=== PATIENT | female | born 1960 | race Caucasian/White ===

== ENCOUNTER 2019-02-05 00:43 | Outpatient (CLI) | payer BC, SELFPAY ==
--- NOTE | 2019-02-05 12:50 | DI.MAMMO_ITS ---
SYMPTOM/DIAGNOSIS: SCREENING, Z12.31, FAMILY H/O BREAST CA, Z80.3 MAMMOGRAMS: Mammograms were interpreted according to the usual protocol including computer analysis with CAD system, tomosynthesis and C view imaging. The breast tissue is heterogeneously radiodense which lowers the sensitivity of the study. There is no evidence of a dominant mass. There are no suspicious calcifications and there has been no significant interval change when compared with previous exams. IMPRESSION: Category 1, no evidence for malignancy. Breast density, category C. Yearly screening mammography is recommended. SA ASSESSMENT OF FINDINGS: Negative. Category 1. Patient will receive a letter notifying them of these results. Bi-RADS category C. The breasts are heterogeneously dense, which may obscure small masses.
== END 2019-02-05 01:03 ==
PROVIDERS: PCP Family Medicine; Visit Provider Family Medicine
DX: Z12.31 Encounter for screening mammogram for malignant neoplasm of breast (principal); Z80.3 Family history of malignant neoplasm of breast
CPT/HCPCS: 77063; 77067

== ENCOUNTER 2021-06-29 14:11 | Outpatient (REF) | payer BC, SELFPAY ==
--- NOTE | 2021-06-29 13:35 | PAPFT_PTH ---
PATIENT: Keri Rodriguez LOC: [facility]#:[id number] AGE/SX: 60/F ROOM: RE06/29/[address]: Brock Argueta : 1960 BED: DIS: 06/29/2021 SPEC #: [id number] RECD: 06/30/21 13:02 STATUS: SUKHJINDER REQ #: [id number] KENY: 06/29/21 13:[address]: Brock Argueta DEPT: [facility] Cytology RECD BY: Sandra Brown ENTERED: 06/30/21 13:02 SP TYPE: PAPFT OTHR DR: Gerry Moise Tissues: 1 - CX/ENDOCX FOR PAP SMEARS Procedures: PAP THIN PREP/UVM Screening HPV DNA PROBE Comments: [id number]
[2021-06-29 22:06] LABS: Anion Gap 11.6 mmol/L (3-11); BUN 11 mg/dL (7-18); CO2 26.4 mmol/L (21.0-32.0); CREATININE 0.6 mg/dL (0.55-1.02); Calculated LDL 116 mg/dL (<100); Chloride 102 mmol/L (98-107); Cholesterol 187 mg/dL (<200); Glucose 71 mg/dL (74-106); HDL Cholesterol 58 mg/dL (40-60); Potassium 3.7 mmol/L (3.5-5.1); Sodium 140 mmol/L (136-145); Triglyceride 68 mg/dL (<150)
== END 2021-06-29 14:12 | disposition home or self-care (01) ==
LOC: NCHCN 14:11
PROVIDERS: PCP Family Medicine; Visit Provider Family Medicine
DX: Z00.00 Encounter for general adult medical examination without abnormal findings (principal); Z12.4 Encounter for screening for malignant neoplasm of cervix; Z11.51 Encounter for screening for human papillomavirus (HPV)
CPT/HCPCS: 80048; 80061; 88142; 87624

== ENCOUNTER 2021-07-05 00:15 | Outpatient (CLI) | payer BC, SELFPAY ==
--- NOTE | 2021-07-05 09:00 | DI.MAMMO_ITS ---
Exam(s) MAMMO SCREENING EXAM: MAMMO SCREENING CLINICAL HISTORY: SCREENING FOR BREAST CANCER Z12.39. TECHNIQUE: Bilateral full field digital CC and MLO mammographic images were obtained with 3D tomosyn thesis and utilizing computer aided detection (CAD). COMPARISON: Prior mammograms dating back to 2011, the most recent being January 2019. Prior breast ultrasound performed 2017 was reviewed. FINDINGS: There are no CAD designations. No new significant radiograph findings in the right breast. In the left breast lateral aspect there is a nodular density noted posteriorly not evident on prior m ammograms. This is located posteriorly, approximately 14 cm from the nipple. There is slight possib ly that this may represent a skin mole. Nevertheless, spot compression view recommended.. No malign ant-appearing microcalcification groups is region or elsewhere in either breast. There is no significant architectural distortion nor skin thickening-retraction. IMPRESSION: 1. No radiographic evidence of malignancy in left breast. 2. There is a lobulated 6 x 5 millimeter posteriorly located left breast nodule as described above. Additional spot compression exaggerated CC view recommended. Also ultrasound. Correlation clinical exam to determine there is a skin mole at this level will be performed when this patient returns for this additional left breast imaging. BI-RADS Category 0 - Assessment Incomplete: Need additional imaging evaluation Breast Density - Category C - Heterogeneously dense Breast density Category C or D implies that the patient has dense breast tissue. Dense breast tissue can make it harder to find cancer on a mammogram. Dense breast tissue is also associated with an incr eased risk of breast cancer. This information about the result of the mammogram report was provided to the patient to raise their awareness. Use this report when you speak with the patient about their risks for breast cancer, which includes their family history. At that time, you may recommend additional screening tests (Ultrasoun d or MRI) as these tests may add significant information. A negative radiographic report should not delay biopsy if a dominant or clinically suspicious mass is present. Up to ten percent of cancers are not identified on mammography. A negative report may reinforce clinical impression. Adenosis and dense breasts may obscure an underlying neoplasm. False positive reports average 6 to 10%. Patient will receive a letter notifying them of these results.
== END 2021-07-05 00:35 ==
PROVIDERS: PCP Family Medicine; Visit Provider Family Medicine
DX: Z12.31 Encounter for screening mammogram for malignant neoplasm of breast (principal); R92.8 Other abnormal and inconclusive findings on diagnostic imaging of breast
CPT/HCPCS: 77063; 77067

== ENCOUNTER 2021-07-13 02:10 | Outpatient (CLI) | payer BC, SELFPAY ==
--- NOTE | 2021-07-13 14:15 | DI.MAMMO_ITS ---
Exam(s) MAMMO SCREEN CALL BACK UNI EXAM: MAMMO SCREEN CALL BACK UNI CLINICAL HISTORY: NODULAR DENSITY LEFT BREAST TECHNIQUE: Spot compression views and tomographic imaging were performed. COMPARISON: 2011 through 05 July 2021 FINDINGS: The area of nodularity in far posterior lateral left breast is consistent with a skin tag or mole.No suspicious masses or suspicious microcalcifications are seen. IMPRESSION: BI-RADS Category 1, Negative Yearly screening mammography is recommended. Breast Density - Category B, scattered fibroglandular densities.
== END 2021-07-13 02:30 ==
PROVIDERS: PCP Family Medicine; Visit Provider Family Medicine
DX: Z12.31 Encounter for screening mammogram for malignant neoplasm of breast (principal)
CPT/HCPCS: 77063; 77067

== ENCOUNTER → 2023-07-23 00:46 | Outpatient (CLI) | payer BC, SELFPAY ==
--- NOTE | 2023-07-23 15:38 | DI.MAMMO_ITS ---
Exam(s) MAMMO SCREENING EXAM: MAMMO SCREENING CLINICAL HISTORY: SCREENING,Z12.31 TECHNIQUE: Mammograms were interpreted according to the usual protocol including computer analysis w Bio[employer] CAD system, tomosynthesis and C-view imaging. COMPARISON: 2015 through 2021 FINDINGS: The breasts are composed of scattered fibroglandular densities, Breast Density category B. No suspicious masses or suspicious microcalcifications are seen. No skin thickening or abnormal axillary lymph nodes are seen. There has been no significant change from prior exams. IMPRESSION: BI-RADS Category 1, Negative mammogram Yearly screening mammography is recommended. Breast Density - Category B, scattered fibroglandular densities. A negative radiographic report should not delay biopsy if a dominant or clinically suspicious mass is present. Up to ten percent of cancers are not identified on mammography. A negative report may reinforce clinical impression. Adenosis and dense breasts may obscure an underlying neoplasm. False positive reports average 6 to 10%. Patient will receive a letter notifying them of these results.
== END ==
PROVIDERS: PCP Family Medicine; Visit Provider Family Medicine
DX: Z12.31 Encounter for screening mammogram for malignant neoplasm of breast (principal)
CPT/HCPCS: 77063; 77067

== ENCOUNTER 2023-07-31 07:23 | Emergency (ER) | payer BC, SELFPAY ==
[2023-07-31 07:25] VITALS: BP 138/77; PULSE 94; RESP 16; TEMP 36.4; O2SAT 96
[2023-07-31 07:31] VITALS: BP 138/77; PULSE 94; RESP 16; TEMP 36.4; O2SAT 96
--- NOTE | 2023-07-31 07:37 | ED.GENADUL_ITS ---
HPI General Stated Complaint: Sorethroat ALVARO: 4 Date/Time Provider Initiated Documentation: 07/31/23 07:31. Limitations to Documentation: no limitations. Information obtained by: patient. HPI Narrative: 62-year-old female with out significant past medical history presents for evaluation of 2 days of sore throat and ear pain. Denies any fever at home. Reports coworkers are sick. Denies any cough, nausea, vomiting. Sore throat pain worse with swallowing. But denies any difficulty swallowing. Reports pain with speaking, but no difficulty speaking or significant voice change. Related Data Home Medications Medication Instructions Recorded Confirmed nirmatrelvir 300 mg (150 mg See Rx Instructions PO .COMPLEX 07/31/23 x2)-ritonavir 100 mg tablet,dose #30 dose pk pack (Paxlovid) Previous Rx's Medication Instructions Recorded nirmatrelvir 300 mg (150 mg See Rx Instructions PO .COMPLEX 07/31/23 x2)-ritonavir 100 mg tablet,dose #30 dose pk pack (Paxlovid) Allergies Allergy/AdvReac Type Severity Reaction Status Date / Time No Known Allergies Allergy Unverified 07/31/23 07:29 [facility] All Active Problems (Updated 07/31/23 @ 08:04 by Paulo Christianson MD) COVID (Acute) Surgical History Trigger Finger release (03/02/16) LEFT THUMB/DR. MAI Social History Smoking/Tobacco Use Status: Never Smoking risk assessment performed?: Yes Alcohol Intake: former Drug use: Never Substance use type: does not use Exam Narrative Exam Narrative: Review of Systems: All systems reviewed & are unremarkable except as noted in HPI and below Well-developed, no acute distress Afebrile NACT PERRL, normal conjunctiva Bilateral TM without erythema, bulging or effusion + Nasal congestion Posterior oropharynx with erythema, no tonsillar exudate or enlargement No lymphadenopathy RRR Unlabored respiratory effort, clear breath sounds bilaterally, no wheezing Nondistended abdomen Extremities w/o deformity, no cyanosis, no edema No rashes or lesions. no focal neurologic deficits Appropriate mood and affect Course Vital Signs Vital signs: Vital Signs Temperature 36.4 C L 07/31/23 07:25 Pulse 94 H 07/31/23 07:25 Respiratory Rate 16 07/31/23 07:25 Blood Pressure 138/77 07/31/23 07:25 Pulse Oximetry 96 07/31/23 07:25 Temperature 36.4 C L 07/31/23 07:31 Pulse 94 H 07/31/23 07:31 Respiratory Rate 16 07/31/23 07:31 Respiratory Effort Normal, Non-Labored 07/31/23 07:28 Blood Pressure 138/77 07/31/23 07:31 Pulse Oximetry 96 07/31/23 07:31 Oxygen Delivery Method Room Air 07/31/23 07:31 Oxygen Flow Rate 0 07/31/23 07:31 Medical Decision Making Emergent evaluation of URI symptoms. Initial differential includes viral illness, sinusitis, allergic rhinitis. Very low suspicion for strep pharyngitis causing sore throat and feel sore throat is likely secondary to posterior nasal drainage. Have recommended Flonase and Claritin and Mucinex to take [id number]. Viral testing performed in the emergency department due to high community prevalence at this time. COVID testing is positive. At this time the patient has no concerning symptoms for significant disease requiring further emergent workup or hospitalization. She is eligible for Paxlovid prescription given her age, but she has no other risk factors at this time. Prescription provided if she would like to take this medication. Patient discharged in good condition. Follow-up with PCP. Return precautions Medical Records Medical records reviewed: Yes I reviewed the patient's medical records. Lab Data Lab results reviewed: Yes I reviewed the patient's lab results. Quality:[facility] Health Related Social Needs: No Data to Display Discharge Plan Disposition Patient Disposition: Home Discharge Details Clinical Impression: COVID Primary Care Provider: Gerry Moise ED Provider: Paulo Christianson Home Meds and New Rx's Prescriptions: New Paxlovid 300 mg (150 mg x 2)-100 mg tablets,dose pack See Rx Instructions .ROUTE .COMPLEX Qty: 30 0RF Rx Instructions: take TWO 150 mg tablets of nirmatrelvir with ONE 100 mg tablet of ritonavir twice daily for 5 days Discharge Instructions Instructions: COVID-19 (Coronavirus Disease 2019) (ED) Additional Instructions: Your COVID test is positive today. Please isolate and wear a mask for a minimum of 5 days, continue to wear a mask for 2 weeks in public settings. Take Motrin and Tylenol as needed for fever, body aches. Make sure to stay hydrated. You are eligible for a Paxlovid prescription. This may help reduce the severity of symptoms and the risk for serious complications. Please follow-up with your primary care doctor. Return to the emergency department with any significant worsening of symptoms or difficulty breathing
[2023-07-31] MEDS: Acetaminophen 500 MG TAB 1000 MG PO (07:45)
== END 2023-07-31 08:10 | disposition home or self-care (01) ==
PROVIDERS: Emergency Provider Emergency Medicine; PCP Family Medicine
DX: U07.1 COVID-19 (principal)
CPT/HCPCS: 87426; 87880; 99283; 87081

== ENCOUNTER 2024-06-30 09:30 | Outpatient (REF) | payer BC, SELFPAY ==
[2024-06-30 15:15] LABS: ALT 24 U/L (14-59); AST 14 U/L (15-37); Albumin 3.8 g/dL (3.4-5.0); Alkaline Phosphatase 89 U/L (46-116); Anion Gap 5.9 mmol/L (3-11); BUN 18 mg/dL (7-18); Bilirubin, Total 0.55 mg/dL (0.2-1.0); CO2 30.1 mmol/L (21.0-32.0); CREATININE 0.7 mg/dL (0.55-1.02); Calcium 9.3 mg/dL (8.5-10.1); Calculated LDL 112 mg/dL (<100); Chloride 108 mmol/L (98-107); Cholesterol 202 mg/dL (<200); Estimated GFR 97.72 (mL/min/1.73m2); Glucose 109 mg/dL (74-106); HDL Cholesterol 80 mg/dL (40-60); Potassium 4.2 mmol/L (3.5-5.1); Sodium 144 mmol/L (136-145); Total Protein 7.6 g/dL (6.4-8.2); Triglyceride 54 mg/dL (<150)
== END 2024-06-30 09:31 | disposition home or self-care (01) ==
LOC: NCHCN 09:30
PROVIDERS: PCP Family Medicine; Visit Provider Family Medicine
DX: E78.5 Hyperlipidemia, unspecified (principal)
CPT/HCPCS: 80053; 80061

== ENCOUNTER 2025-07-01 10:53 | Outpatient (REF) | payer BC, SELFPAY ==
[2025-07-01 14:48] LABS: Hemoglobin A1C 5.3 % (<5.7)
[2025-07-01 14:58] LABS: Anion Gap 7.8 mmol/L (3-11); BUN 18 mg/dL (9-23); CO2 28.2 mmol/L (20.0-31.0); Calcium 9.2 mg/dL (8.3-10.6); Chloride 109 mmol/L (98-107); Cholesterol 197 mg/dL (<200); Glucose 93 mg/dL (74-106); HDL Cholesterol 72 mg/dL (>40); Potassium 3.7 mmol/L (3.5-5.1); Sodium 145 mmol/L (136-145)
== END 2025-07-01 10:54 | disposition home or self-care (01) ==
LOC: NCHCN 10:53
PROVIDERS: PCP Family Medicine; Visit Provider Family Medicine
DX: Z00.00 Encounter for general adult medical examination without abnormal findings (principal); Z13.220 Encounter for screening for lipoid disorders; Z13.1 Encounter for screening for diabetes mellitus
CPT/HCPCS: 80048; 80061; 83036